=== PATIENT | female | born 2000 | race Caucasian/White ===

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

== ENCOUNTER 2022-01-27 21:57 | Emergency (ER) | payer OTHER ==
[~2022-01-27] VITALS: Ht 152.4 cm; Wt 70.9 kg
[2022-01-27 22:04] VITALS: BP 105/62
== END 2022-01-27 22:33 | disposition home or self-care (01) ==
LOC: EMS 21:57
DX: O26.893 Other specified pregnancy related conditions, third trimester (principal); Z3A.34 34 weeks gestation of pregnancy; R10.84 Generalized abdominal pain; G43.909 Migraine, unspecified, not intractable, without status migrainosus
CPT/HCPCS: 99281; Z7502